=== PATIENT | male | born 1995 | race Caucasian/White ===

== ENCOUNTER 2016-05-30 05:40 | Emergency (ER) | payer OTHER ==
[~2016-05-30] VITALS: Ht 180.3 cm; Wt 65.8 kg
[2016-05-30 05:55] VITALS: BP 142/76; PULSE 96; RESP 16; TEMP 98.2; O2SAT 99
[2016-05-30 06:25] VITALS: BP 125/81; PULSE 78; RESP 16; TEMP 98.6; O2SAT 99
== END 2016-05-30 06:25 ==
LOC: SED 05:40
DX: Z02.89 Encounter for other administrative examinations (principal)